=== PATIENT | female | born 1945 | race African-American/Black ===

== ENCOUNTER 2022-01-01 12:11 | Outpatient (CLI) | payer MEDICARE, OTHER | END 2022-01-01 12:12 | disposition home or self-care (01) | LOC: CSHCT 12:11 | PROVIDERS: ATTEND Urology | DX: N20.0 Calculus of kidney (principal); M62.89 Other specified disorders of muscle; N75.0 Cyst of Bartholin's gland; K57.30 Diverticulosis of large intestine without perforation or abscess without bleeding; K80.20 Calculus of gallbladder without cholecystitis without obstruction | CPT/HCPCS: 74176 ==